=== PATIENT | male | born 1980 | race Caucasian/White ===

== ENCOUNTER 2021-12-10 06:09 | Emergency (ER) | payer BC, OTHER ==
[2021-12-10 06:13] VITALS: BP 117/67
[2021-12-10] MEDS ORDERED: KETOROLAC TROMETH 60MG/2ML VIAL IM ONE (09:15)
[2021-12-10] MEDS ORDERED: CYCL-837 PO (09:19)
[2021-12-10] MEDS ORDERED: NAP500T PO (09:19)
== END 2021-12-10 09:54 | disposition home or self-care (01) ==
LOC: ER 06:09 → EDBD 06:09 → ER 09:49
DX: S16.1XXA Strain of muscle, fascia and tendon at neck level, initial encounter (principal); S80.02XA Contusion of left knee, initial encounter; S60.222A Contusion of left hand, initial encounter; V43.52XA Car driver injured in collision with other type car in traffic accident, initial encounter; Y93.89 Activity, other specified; Y92.410 Unspecified street and highway as the place of occurrence of the external cause; Y99.8 Other external cause status
CPT/HCPCS: 72125; 73130; 73562; 96372; 99284; J1885